=== PATIENT | female | born 1990 | race Asian ===

== ENCOUNTER 2024-11-16 01:04 | Inpatient (IN) ==
[2024-11-16] MEDS ORDERED: LIDOCAINE 1% LOCAL 20 ML VIAL INFIL PRN (02:05)
[2024-11-16] MEDS ORDERED: OXYTOCIN 30 UNITS/NSS 30 UNITS/500 ML BAG IV PRN (02:05)
--- NOTE | 2024-11-16 02:07 | History & Physical Report ---
Date of Service November 16, 2024 Assessment & Plan (1) Gestational diabetes mellitus (GDM) affecting , antepartum: (2) Normal labor: Plan admit. desires epidural. arom when indicated. pit as needed, fetus category one. Anticipate . History of Present Illness Chief Complaint: contractions Primary Care Provider: Yuliya Ruvalcaba Patient is a 34yoaf, with iup at40 4/7 who presents with worsening, painful contractions. no lof/vb. +fm and Delivery Plans Rubella nonimmune GDM w/28wk glucola *Begin monthly Growth US's 36 weeks AC >98%, efw 67% OB Labs: Blood Type B Positive 04/21/24 Antibody Screen NEGATIVE 04/21/24 Hgb 11.0 g/dl (12.0-16.0) L 09/30/24 Hct 33.7 % (37.0-47.0) L 09/30/24 MCV 90.7 fL (80.0-100.0) 04/21/24 Plt Count 256 K/uL (130-400) 04/21/24 Rubella IgG Antibody Non Immune (Immune) L 04/21/24 Treponema pallidum Ab Negative (Negative) 08/20/24 Hep Bs Antigen Negative (Negative) 04/21/24 Hepatitis C Antibody Negative (Negative) 04/21/24 HIV 1&2 Ab/P24 Ag 4thGn Negative (Negative) 04/21/24 Glucose 1 Hr 50 gm 138 mg/dl (70-130) H 06/03/24 Maternal Serum AFP 41.6 ng/mL 06/03/24 OB Optional Labs: Chlamydia trachomatis RNA Not Detected (NotDetected) 04/21/24 Neisseria gonorrhoeae RNA Not Detected (NotDetected) 04/21/24 Alpha Fetoprotein Triple Screen SEE NOTE 06/03/24 Labs Reviewed: neg horizon - sln low risk cfdna - sln gbs neg Allergies Allergy/AdvReac Type Severity Reaction Status Date / Time No Known Allergies Allergy Verified 11/09/24 10:40 Home Medications Medication Instructions Recorded Confirmed Type ascorbic acid (vitamin C) PO 04/06/24 11/09/24 History cholecalciferol (vitamin D3) 50 50 mcg PO DAILY 04/06/24 11/16/24 History mcg (2,000 unit) capsule omega-3 fatty acids [Fish Oil] PO 04/06/24 11/09/24 History Saccharomyces boulardii [Daily PO 04/13/24 11/09/24 History Probiotic (S. boulardii)] levomefolate calcium PO 04/13/24 11/09/24 History [L-Methylfolate] prenat.vits,carolyn,pnp-tlns-ficha tab PO 04/13/24 11/09/24 History acetone (urine) test (Ketone Urine #50 ea 09/02/24 11/09/24 Rx Test strips) blood sugar diagnostic (OneTouch #400 ea 11/02/24 11/09/24 Rx Verio test strips) blood-glucose meter (OneTouch #1 ea 11/02/24 11/09/24 Rx Verio Flex Meter) blood-glucose sensor (FreeStyle #2 ea 11/02/24 11/09/24 Rx Valentino 3 Sensor device) lancets 30 gauge (OneTouch Delica #400 ea 11/02/24 11/09/24 Rx Plus Lancet) Patient History Medical History Anemia Gestational diabetes No pertinent past medical history Surgical History H/O tooth extraction Family History Denies family history of Ovarian cancer Breast cancer Colorectal cancer Social History Smoking Status: Never smoker Second Hand Exposure: No; Do You Dip or Chew Tobacco: No; Hx Alcohol Use: No Hx Substance Use: No Preferred Language: Stateless Communication Ability: Effective Blood Bank Custodian Required: No Beliefs That Will Affect Care: None marital status: marital status details: Melva (40) [phone] Current Living Situation: Spouse Current Living Situation Comment: and her mother current occupational status: student current occupation: [employer] student Other Information That Helps Us Care for You: No Feels Safe at Home: Yes Safety Concerns: Feels Safe At This Time Assistive Devices: None OB History g1--present LABORATORY MONITOR History noncontributory Physical Exam Constitutional: WD/WN, vitals as above Gastrointestinal (Abdomen): soft, gravid, nt cephalic, op by ultrasound Psychiatric: A+Ox3, euthymic affect Genitourinary: cx--4/100/-1 toco--q2-4min efm--140s with mod variability, accels to 160s. no decels. Results & Data Vital Signs (Past 12 Hours) Vital Signs Temp Pulse Resp BP 11/16/24 01:30 93 H 121/80 11/16/24 01:24 37.1 C 20 Coding Level of Care Code None Diagnoses Gestational diabetes mellitus (GDM) affecting , antepartum O24.419 Normal labor O80; Z37.9
[2024-11-16] MEDS: LACTATED RINGER'S 1,000 ML IV PRN (02:20)
[2024-11-16 02:48] LABS: Hematocrit (blood only) 36.2 % (37.0-47.0); Hemoglobin 12.3 g/dl (12.0-16.0); Mean Corpuscular Hemoglobin 31.0 pg (25.0-34.0); Mean Corpuscular Volume 91.2 fL (80.0-100.0); Platelet Count 220 K/uL (130-400); RDW Standard Deviation 41.2 fL (36.4-46.3); Red Blood Count 3.97 M/uL (4.20-5.40); White Blood Count 12.17 K/ul (4.8-10.8)
[2024-11-16] MEDS ORDERED: LIDOCAINE 2% MPF LOCAL 5 ML VIAL EPI PRN (03:18)
[2024-11-16] MEDS ORDERED: SODIUM CHLORIDE 0.9% PF INJ 10 ML VIAL EPI PRN (03:18)
[2024-11-16] MEDS ORDERED: NALOXONE HCL 0.4 MG/1 ML VIAL/CARP IV PRN ×2 (03:18→17:59)
[2024-11-16] MEDS ORDERED: ONDANSETRON INJ 2 MG/ML 2 ML VIAL IV PRN ×3 (03:18→19:12)
[2024-11-16] MEDS ORDERED: BUPIVACAINE 0.25% PF 30 ML VIAL EPI PRN (03:18)
[2024-11-16] MEDS ORDERED: ROPIVACAINE 0.5% PF 5 MG/ML 20 ML VIAL EPI PRN (03:18)
[2024-11-16] MEDS ORDERED: NALOXONE HCL 1 MG in SODIUM CHLORIDE 0.9% 1,000 ML IV PRN ×2 (03:18→17:59)
[2024-11-16] MEDS ORDERED: diphenhydrAMINE 50 MG/ML VIAL IV PRN ×2 (03:18→17:59)
[2024-11-16] MEDS ORDERED: NALBUPHINE HCL INJ 10 MG/ML AMP IV PRN ×2 (03:18→17:59)
--- NOTE | 2024-11-16 03:18 | Anesthesiology Consultation ---
Date of Service November 16, 2024 Assessment & Plan ASA ASA2 Proposed Anesthesia Anesthesia Type: Labor Epidural Risk / Benefits Reviewed With: PT / POA / Parent / Guardian, Accepts Plan and Informed Consent Obtained History Height/Weight Height: 5 ft 4 in Weight: 77.973 kg Allergies Allergy/AdvReac Type Severity Reaction Status Date / Time No Known Allergies Allergy Verified 11/09/24 10:40 Medications Home Medications Medication Instructions Recorded Confirmed Last Taken ascorbic acid (vitamin C) PO 04/06/24 11/09/24 Unknown cholecalciferol (vitamin D3) 50 50 mcg PO DAILY 04/06/24 11/16/24 Unknown mcg (2,000 unit) capsule omega-3 fatty acids [Fish Oil] PO 04/06/24 11/09/24 Unknown Saccharomyces boulardii [Daily PO 04/13/24 11/09/24 Unknown Probiotic (S. boulardii)] levomefolate calcium PO 04/13/24 11/09/24 Unknown [L-Methylfolate] prenat.vits,carolyn,iri-nkjm-nomob tab PO 04/13/24 11/09/24 Unknown acetone (urine) test (Ketone Urine #50 ea 09/02/24 11/09/24 Unknown Test strips) blood sugar diagnostic (OneTouch #400 ea 11/02/24 11/09/24 Unknown Verio test strips) blood-glucose meter (OneTouch #1 ea 11/02/24 11/09/24 Unknown Verio Flex Meter) blood-glucose sensor (FreeStyle #2 ea 11/02/24 11/09/24 Unknown Valentino 3 Sensor device) lancets 30 gauge (OneTouch Delica #400 ea 11/02/24 11/09/24 Unknown Plus Lancet) Active Medications Generic Name Dose Route Start Last Admin Trade Name Freq PRN Reason Stop Dose Admin Fentanyl/Bupivacaine/Sodium Chlor 100 ml 11/16/24 03:18 11/16/24 03:41 Fentanyl 2 Mcg/Ml Bupivacaine 0.125%-Nss 100ml Bag EPI 11/17/24 03:17 100 ml PRN PRN Administration Pain R/T Labor Protocol Lactated Ringer's 1,000 mls @ 125 mls/hr 11/16/24 02:05 11/16/24 03:46 Lr IV 11/18/24 02:04 125 mls/hr .Q8H PRN Administration L&D Protocol Protocol Past Medical History Medical History Anemia Gestational diabetes No pertinent past medical history Exercise / Class Metabolic Activity II 4-5 Yardwork/Stairs/Walk up hill Past Family History Family History Denies family history of Ovarian cancer Breast cancer Colorectal cancer Past Surgical History Surgical History H/O tooth extraction Past Anesthesia History No Hx of Anesthesia Complications and No Family Hx of Anesthesia Complications History of PONV No Hx of PONV and No Hx of Motion Sickness Social History Smoking Status: Never smoker Do You Dip or Chew Tobacco: No Hx Alcohol Use: No Hx Substance Use: No substance use type: does not use Review of Systems denies fever/cough/ colds/ chest pain/ SOB/ BLAKE denies BLAKE Physical Exam Vital Signs Last Vital Signs Temp 37.1 C 11/16/24 01:24 Pulse 94 H 11/16/24 03:44 Resp 20 11/16/24 01:24 BP 115/65 11/16/24 03:44 Pulse Ox 97 11/16/24 03:44 ENMT Mouth: no TMJ abnormality and no dentition abnormality Thyromental Distance: > or= 3.5 Finger Breadths Mallampati Class: II Neck neck extension not limited Respiratory normal respiratory effort; no respiratory distress Auscultation: lungs clear to auscultation bilaterally Cardiovascular Rate/Rhythm: regular rate and regular rhythm Neurologic moves all extremities Psychiatric Orientation: alert and oriented x 3 Testing Laboratory Results 11/16/24 02:24 11/16/24 02:15 POC Glucose 100 H
[2024-11-16] MEDS: LIDOCAINE 2%/EPINEPHRINE 1:200,000 20 ML PF EPI STA (03:40)
[2024-11-16] MEDS: BUPIVACAINE 0.25% PF 30 ML VIAL EPI STA (03:40)
[2024-11-16] MEDS: fentANYL 2 MCG/ML BUPIVacaine 0.125%-NSS 100ML BAG EPI PRN (03:41)
[2024-11-16] MEDS: BUPIVACAINE 0.25% PF 30 ML VIAL ONE (07:05)
[2024-11-16] MEDS: SODIUM CHLORIDE 0.9% PF INJ 10 ML VIAL EPI STA (07:06)
[2024-11-16] MEDS: SODIUM CHLORIDE 0.9% PF INJ 10 ML VIAL ONE (07:06)
[2024-11-16] MEDS: fentANYL 2 MCG/ML BUPIVacaine 0.125%-NSS 100ML BAG ONE (07:06)
[2024-11-16] MEDS: LIDOCAINE 2%/EPINEPHRINE 1:200,000 20 ML PF ONE (07:06)
[2024-11-16] MEDS: ACETAMINOPHEN 650 MG SUPP PR STA (14:03)
[2024-11-16] MEDS: AMPICILLIN/SULBACTAM SOD 3,000 MG/100 ML BAG IV STA (14:03)
[2024-11-16] MEDS ORDERED: MoRPHine SULFATE PF 1 MG/ML 10 ML AMP/VIAL ONE (17:11)
[2024-11-16] MEDS ORDERED: LIDOCAINE 2%/EPINEPHRINE 1:200,000 20 ML PF ONE (17:11)
--- NOTE | 2024-11-16 17:13 | Labor Progress Brief Note ---
Date of Service November 16, 2024 Subjective Patient began pushing earlier today and gave good effort but made minimal progress. An anterior rim of cervix was palpable at that point and patient was rested for a while to labor down. Maternal fever was noted, and resulted in my ordering tylenol + Unasyn for chorioamnionitis. FHT were Cat 2. With resolution of fever, FHT were Cat 1 and pushing resumed. Patient has been pushing for nearly 2hr in this second stage now, and while the head is low, it has not made any further descent beyond +2 which is where it was one full hour ago. Contractions have been spontaneously Q1-2min through her labor process and there has not been a role for adding pitocin, nor would it have been possible given her FHT. heart tones had shown variability and a normal baseline, with variable decels during pushing. I counseled the patient and FOB that after what amounts to 3 total hours of pushing effort, I do not feel she is near delivery, and there has been no further descent for about the last hour. Further, while she is resting supine and not actively pushing, FHT now show an elevated baseline and decreased variability. I advised section. The patient, FOB and property master wished to discuss this and asked that I leave the room for them to consider options. Several minutes later I returned to ask their thoughts. I expressed concern for the FHT again and at that time they agreed to proceed. Consent signed with pt, FOB and property master in the room. Anesthesia notified, second surgeon notified to proceed to hospital for desk assistant role, and we are moving swiftly to delivery. Assessment & Plan Admission and Anticipated Discharge Date Admission Date: November 16, 2024 Results & Data Vital Signs (Past 12 Hours) Vital Signs Temp Pulse Resp BP Pulse Ox 11/16/24 17:05 108 H 100 11/16/24 17:00 108 H 99 11/16/24 16:55 111 H 99 11/16/24 16:53 108 H 121/78 11/16/24 16:50 116 H 99 11/16/24 16:45 115 H 98 11/16/24 16:40 115 H 98 11/16/24 16:38 131 H 105/59 L 11/16/24 16:35 114 H 82 L 11/16/24 16:33 109 H 91 11/16/24 16:30 111 H 84 L 11/16/24 16:25 103 H 82 L 11/16/24 16:24 123 H 112/55 L 11/16/24 16:20 110 H 96 11/16/24 16:19 120 H 93 11/16/24 16:15 111 H 86 L 11/16/24 16:13 113 H 88 L 11/16/24 16:10 115 H 97 11/16/24 16:08 125 H 101/52 L 11/16/24 16:07 104 H 89 L 11/16/24 16:05 109 H 96 11/16/24 16:00 122 H 95 11/16/24 15:54 116 H 95 11/16/24 15:52 116 H 93 11/16/24 15:49 112 H 96 11/16/24 15:46 110 H 91 11/16/24 15:44 102 H 97 11/16/24 15:39 117 H 95 11/16/24 15:38 102 H 117/56 L 11/16/24 15:37 106 H 94 11/16/24 15:34 96 H 96 11/16/24 15:29 99 H 95 11/16/24 15:24 105 H 95 11/16/24 15:23 108 H 115/58 L 11/16/24 15:19 106 H 96 11/16/24 15:14 106 H 98 11/16/24 15:09 96 11/16/24 15:09 105 H 11/16/24 15:09 105 H 128/62 11/16/24 15:04 108 H 96 11/16/24 15:03 22 11/16/24 15:03 99.7 F H 22 11/16/24 15:02 111 H 94 11/16/24 14:59 118 H 95 11/16/24 14:57 102 H 92 11/16/24 14:54 119 H 94 11/16/24 14:51 111 H 89 L 11/16/24 14:49 109 H 96 11/16/24 14:44 113 H 95 11/16/24 14:39 96 11/16/24 14:39 106 H 11/16/24 14:39 102 H 91 11/16/24 14:38 105 H 123/64 11/16/24 14:34 111 H 98 11/16/24 14:32 113 H 91 11/16/24 14:29 112 H 98 11/16/24 14:24 101 H 102/57 L 96 11/16/24 14:19 104 H 97 11/16/24 14:14 100 H 97 11/16/24 14:09 101 H 97 11/16/24 14:07 98 H 112/62 11/16/24 14:04 100 H 98 11/16/24 13:59 109 H 98 11/16/24 13:54 98 H 96 11/16/24 13:53 100 H 104/62 11/16/24 13:49 98 H 97 11/16/24 13:44 98 H 96 11/16/24 13:39 95 H 98 11/16/24 13:38 99 H 106/64 11/16/24 13:34 105 H 99 11/16/24 13:29 100 H 97 11/16/24 13:24 101 H 98 11/16/24 13:23 100 H 117/62 11/16/24 13:19 95 H 98 11/16/24 13:14 104 H 99 11/16/24 13:09 97 H 98 11/16/24 13:08 100 H 116/66 11/16/24 13:04 100.9 F H 108 H 19 98 11/16/24 12:59 96 H 98 11/16/24 12:54 95 H 99 11/16/24 12:53 90 132/75 11/16/24 12:49 95 H 98 11/16/24 12:44 103 H 98 11/16/24 12:39 107 H 98 11/16/24 12:38 115 H 128/79 11/16/24 12:34 95 H 100 11/16/24 12:29 91 H 97 11/16/24 12:24 96 H 97 11/16/24 12:22 86 141/79 H 11/16/24 12:19 91 H 98 11/16/24 12:14 109 H 99 11/16/24 12:09 101 H 98 11/16/24 12:07 107 H 130/63 11/16/24 12:05 112 H 89 L 11/16/24 12:04 112 H 97 11/16/24 11:59 82 L 11/16/24 11:59 111 H 11/16/24 11:59 108 H 88 L 11/16/24 11:54 101 H 97 11/16/24 11:53 111 H 141/62 H 11/16/24 11:49 107 H 98 11/16/24 11:44 110 H 97 11/16/24 11:39 107 H 97 11/16/24 11:34 114 H 97 11/16/24 11:29 128 H 97 11/16/24 11:24 111 H 99 11/16/24 11:19 116 H 99 11/16/24 11:14 106 H 99 11/16/24 11:10 97.7 F 11/16/24 11:09 101 H 99 11/16/24 11:07 97 H 111/67 11/16/24 11:04 92 H 99 11/16/24 10:59 94 H 99 11/16/24 10:54 98 H 99 11/16/24 10:53 88 109/66 11/16/24 10:49 96 H 98 11/16/24 10:44 83 98 11/16/24 10:39 97 H 99 11/16/24 10:37 88 116/66 11/16/24 10:34 89 97 11/16/24 10:29 87 98 11/16/24 10:24 92 H 98 11/16/24 10:23 95 H 107/62 11/16/24 10:19 80 99 11/16/24 10:14 86 98 11/16/24 10:09 81 97 11/16/24 10:08 91 H 115/80 11/16/24 10:04 80 97 11/16/24 09:59 75 98 11/16/24 09:54 78 98 11/16/24 09:53 82 121/76 11/16/24 09:49 84 97 11/16/24 09:44 89 97 11/16/24 09:39 102 H 98 11/16/24 09:38 96 H 109/62 11/16/24 09:34 97 H 98 11/16/24 09:29 104 H 98 11/16/24 09:24 110 H 98 11/16/24 09:22 100 H 117/69 11/16/24 09:19 100 H 98 11/16/24 09:14 102 H 98 11/16/24 09:09 105 H 98 11/16/24 09:08 103 H 121/72 11/16/24 09:04 114 H 99 11/16/24 08:59 107 H 98 11/16/24 08:54 108 H 99 11/16/24 08:53 113 H 108/59 L 11/16/24 08:49 110 H 99 11/16/24 08:44 95 H 99 11/16/24 08:39 80 96 11/16/24 08:37 77 110/63 11/16/24 08:34 87 96 11/16/24 08:29 77 96 11/16/24 08:24 86 95 11/16/24 08:23 81 112/63 11/16/24 08:19 82 96 11/16/24 08:14 80 97 11/16/24 08:09 81 96 11/16/24 08:08 82 109/71 11/16/24 08:04 84 95 11/16/24 07:59 80 95 11/16/24 07:56 85 94 11/16/24 07:54 84 95 11/16/24 07:53 81 114/66 11/16/24 07:49 81 96 11/16/24 07:44 87 97 11/16/24 07:39 91 H 97 11/16/24 07:37 103 H 110/73 11/16/24 07:34 103 H 98 11/16/24 07:29 97 H 98 11/16/24 07:25 16 11/16/24 07:25 99.1 F 16 11/16/24 07:24 100 H 99 11/16/24 07:22 91 H 107/68 11/16/24 07:19 94 H 97 11/16/24 07:14 100 H 97 11/16/24 07:09 101 H 97 11/16/24 07:08 102 H 117/74 11/16/24 07:04 101 H 97 11/16/24 06:59 101 H 95 11/16/24 06:54 91 H 96 11/16/24 06:53 89 115/74 11/16/24 06:49 104 H 97 11/16/24 06:44 103 H 98 11/16/24 06:39 104 H 98 11/16/24 06:38 104 H 130/81 11/16/24 06:34 104 H 97 11/16/24 06:29 105 H 98 11/16/24 06:24 98 H 97 11/16/24 06:23 96 H 105/61 11/16/24 06:19 91 H 95 11/16/24 06:14 92 H 96 11/16/24 06:09 97 H 97 11/16/24 06:08 87 106/65 11/16/24 06:04 95 H 97 11/16/24 05:59 94 H 97 11/16/24 05:54 91 H 97 11/16/24 05:52 90 100/64 11/16/24 05:49 92 H 97 11/16/24 05:45 98.2 F 11/16/24 05:44 100 H 98 11/16/24 05:39 84 97 11/16/24 05:38 101 H 111/74 11/16/24 05:35 84 94 11/16/24 05:34 82 94 11/16/24 05:29 84 96 11/16/24 05:28 86 94 11/16/24 05:24 81 96 11/16/24 05:23 82 117/68 11/16/24 05:21 82 94 11/16/24 05:19 80 95 11/16/24 05:14 83 95 11/16/24 05:09 91 H 98 Coding Level of Care Code None
[2024-11-16] MEDS: CITRIC ACID/SODIUM CITRATE 15 ML UDC PO SCH (17:21)
[2024-11-16] MEDS: AZITHROMYCIN 500 MG/255 ML BAG IV SCH (17:25)
[2024-11-16] MEDS ORDERED: SODIUM BICARB 8.4% INJ 50 MEQ/50 ML SYR IV ONE (17:43)
[2024-11-16] MEDS ORDERED: OXYTOCIN 10 UNITS/ML VIAL ONE (17:43)
[2024-11-16 17:44] LABS: Hematocrit (blood only) 36.7 % (37.0-47.0); Hemoglobin 13.1 g/dl (12.0-16.0); Mean Corpuscular Hemoglobin 32.2 pg (25.0-34.0); Mean Corpuscular Volume 90.2 fL (80.0-100.0); Platelet Count 218 K/uL (130-400); RDW Standard Deviation 41.4 fL (36.4-46.3); Red Blood Count 4.07 M/uL (4.20-5.40); White Blood Count 18.47 K/ul (4.8-10.8)
[2024-11-16] MEDS ORDERED: DEXAMETHASONE SOD INJ 4 MG/ML VIAL ONE (17:48)
[2024-11-16] MEDS ORDERED: PROMETHAZINE 6.25 MG/50.25 ML BAG IV PRN (17:59)
[2024-11-16] MEDS ORDERED: LACTATED RINGER'S 500 ML IV PRN (17:59)
[2024-11-16] MEDS ORDERED: HYDROmorphone INJ 0.5 MG/0.5 ML SYR IV PRN (17:59)
[2024-11-16] MEDS ORDERED: NALOXONE HCL 0.08 MG in SYRINGE 1.8 ML IV PRN (17:59)
[2024-11-16] MEDS ORDERED: MoRPHine SULFATE PF 1 MG/ML 10 ML AMP/VIAL EPI ONE (17:59)
[2024-11-16] MEDS ORDERED: SODIUM CHLORIDE 0.9% 1,000 ML IV SCH (18:00)
[2024-11-16] MEDS ORDERED: NO NARCOTICS OR SEDATIVES SCH (18:00)
--- NOTE | 2024-11-16 18:13 | Operative Report ---
PG Post Operative Report Pre & Post Diagnosis Operation Date: 11/16/24 17:15 Pre-Op Diagnosis: SROM / Labor Failure to Decend Gestational Diabetes Post-Op Diagnosis: Same as above I identified the patient and participated in the time-out.: Yes Procedure Operation Date: 11/16/24 17:15 1' Low Transverse section Surgeon Jaki Mckeon MD Linux Programmer Rekha Estimated Blood Loss 591 Findings Consistent with Post-Op Diagnosis Specimens Placenta, Cord blood, Cord gases Anesthesia Type L&D Only Epidural Exists Complications none Disposition Accompanied Patient To Recovery: Yes Disposition: L&D Description of Procedure The patient was placed operating table in the supine position with a leftward tilt. She was prepped and draped in standard sterile fashion. The anesthetic was tested and found to be adequate. A time-out was held, identifying correct patient, procedure, positioning and preoperative antibiotics. There were no concerns. A Pfannenstiel skin incision was made with a knife and taken down to the underlying layer of fascia. The fascia was incised in the midline with the knife and taken out laterally with scissors. The superior edge of the fascial incision was grasped, elevated and dissected off the underlying rectus both superiorly and inferiorly. The muscles were bluntly in the midline. The peritoneum was entered bluntly. The incision was then stretched. The bladde r retractor was placed. The vesicouterine peritoneum was identified, entered with scissors and taken out laterally with scissors. The bladder flap was created digitally. A hysterotomy incision was created transversely in the lower uterine segment, final entry being accomplished in a blunt manner with the charging crane operator's fingers. Clear amniotic fluid was encountered. The charging crane operator's hand was used to elevate the head to the hysterotomy. The head was delivered using mild fundal pressure, and the shoulders and body followed without difficulty. The cord was clamped and cut and the was then handed off to the awaiting diamond polisher. Cord blood was obtained. A segment of cord was isolated and cut free for cord blood gas collection. The placenta was Manually extracted. The uterus was exteriorized and cleared of all clot and debris with moistened laparotomy sponges. The hysterotomy incision was repaired in two layers, the first in a running locked layer, the second in an imbricating layer. The ovaries and tubes were seen to be normal bilaterally. The uterus was gently replaced in the abdomen, and the gutters were cleared of clot and debris. A final inspection of the hysterotomy revealed good hemostasis. The rectus muscles were allowed to reapproximate naturally. The fascia was then reapproximated with 1 Vicryl in a running nonlocked manner. The fascia was examined and found to be free of defect following closure. The subcutaneous tissue was copiously irrigated and reapproximated with 0-chromic, then the skin edges were closed with 4-0 monocryl in a subcuticular fashion. A dermabond dressing was applied. The flores was found to be draining clear yellow urine at completion of the procedure. I attest to the content of the Intraoperative Record and any orders documented therein. Any exceptions are noted below. I attest to the content of the Intraoperative Record and any orders documented therein. Any exceptions are noted below. OB Procedure Charges 22475
[2024-11-16] MEDS ORDERED: LACTATED RINGER'S 1,000 ML IV SCH ×2 (18:15→19:12)
[2024-11-16] MEDS ORDERED: CALCIUM CARBONATE 500 MG CHEWABLE TAB PO PRN (19:12)
[2024-11-16] MEDS ORDERED: SENNA 8.6 MG TAB PO PRN (19:12)
[2024-11-16] MEDS ORDERED: BENZOCAINE 20% SPRY 85 APPLN/85 GM CAN EXT PRN (19:12)
[2024-11-16] MEDS ORDERED: HYDROCORTISONE ACETATE 25 MG SUPP PR PRN (19:12)
[2024-11-16] MEDS ORDERED: MAGNESIUM HYDROXIDE SUSP 30 ML UDC PO PRN (19:12)
[2024-11-16] MEDS ORDERED: DIPHTHER/TETAN/PERTUS Vaccine (Tdap, Adol/Adult) 0.5mL IM ONE (19:12)
--- NOTE | 2024-11-16 19:21 | Anesthesiology Progress Note ---
Date of Service November 16, 2024 Anesthesia Post Procedure Vital Signs Vital Signs: Temp Pulse Resp BP Pulse Ox 11/16/24 19:19 92 H 112/62 96 11/16/24 19:16 89 94 11/16/24 19:13 89 98 11/16/24 19:09 97 H 103/58 L 11/16/24 19:08 97 H 98 11/16/24 19:03 101 H 97 11/16/24 18:59 102 H 111/60 95 11/16/24 18:53 105 H 98 11/16/24 18:49 107 H 109/65 97 11/16/24 18:44 105 H 98 11/16/24 18:39 107 H 101/58 L 11/16/24 18:38 105 H 98 11/16/24 18:34 95 H 94/55 L 99 11/16/24 18:28 98 H 98 11/16/24 18:22 95 H 97 11/16/24 18:17 100 H 98 11/16/24 18:12 101 H 99 11/16/24 17:15 115 H 98 11/16/24 17:10 109 H 99 11/16/24 17:09 108 H 135/84 11/16/24 17:05 108 H 100 11/16/24 17:00 108 H 99 11/16/24 16:55 111 H 99 11/16/24 16:53 108 H 121/78 11/16/24 16:50 116 H 99 11/16/24 16:45 115 H 98 11/16/24 16:40 115 H 98 11/16/24 16:38 131 H 105/59 L 11/16/24 16:35 114 H 82 L 11/16/24 16:33 109 H 91 11/16/24 16:30 111 H 84 L 11/16/24 16:25 103 H 82 L 11/16/24 16:24 123 H 112/55 L 11/16/24 16:20 110 H 96 11/16/24 16:19 120 H 93 11/16/24 16:15 111 H 86 L 11/16/24 16:13 113 H 88 L 11/16/24 16:10 115 H 97 11/16/24 16:08 125 H 101/52 L 11/16/24 16:07 104 H 89 L 11/16/24 16:05 109 H 96 11/16/24 16:00 122 H 95 11/16/24 15:54 116 H 95 11/16/24 15:52 116 H 93 11/16/24 15:49 112 H 96 11/16/24 15:46 110 H 91 11/16/24 15:44 102 H 97 11/16/24 15:39 117 H 95 11/16/24 15:38 102 H 117/56 L 11/16/24 15:37 106 H 94 11/16/24 15:34 96 H 96 11/16/24 15:29 99 H 95 11/16/24 15:24 105 H 95 11/16/24 15:23 108 H 115/58 L 11/16/24 15:19 106 H 96 11/16/24 15:14 106 H 98 11/16/24 15:09 96 11/16/24 15:09 105 H 11/16/24 15:09 105 H 128/62 11/16/24 15:04 108 H 96 11/16/24 15:03 22 11/16/24 15:03 37.6 C H 22 11/16/24 15:02 111 H 94 11/16/24 14:59 118 H 95 11/16/24 14:57 102 H 92 11/16/24 14:54 119 H 94 11/16/24 14:51 111 H 89 L 11/16/24 14:49 109 H 96 11/16/24 14:44 113 H 95 11/16/24 14:39 96 11/16/24 14:39 106 H 11/16/24 14:39 102 H 91 11/16/24 14:38 105 H 123/64 11/16/24 14:34 111 H 98 11/16/24 14:32 113 H 91 11/16/24 14:29 112 H 98 11/16/24 14:24 101 H 102/57 L 96 11/16/24 14:19 104 H 97 11/16/24 14:14 100 H 97 11/16/24 14:09 101 H 97 11/16/24 14:07 98 H 112/62 11/16/24 14:04 100 H 98 11/16/24 13:59 109 H 98 11/16/24 13:54 98 H 96 11/16/24 13:53 100 H 104/62 07/01/25 13:49 98 H 97 11/16/24 13:44 98 H 96 11/16/24 13:39 95 H 98 11/16/24 13:38 99 H 106/64 11/16/24 13:34 105 H 99 11/16/24 13:29 100 H 97 11/16/24 13:24 101 H 98 11/16/24 13:23 100 H 117/62 11/16/24 13:19 95 H 98 11/16/24 13:14 104 H 99 11/16/24 13:09 97 H 98 11/16/24 13:08 100 H 116/66 11/16/24 13:04 38.3 C H 108 H 19 98 11/16/24 12:59 96 H 98 11/16/24 12:54 95 H 99 11/16/24 12:53 90 132/75 11/16/24 12:49 95 H 98 11/16/24 12:44 103 H 98 11/16/24 12:39 107 H 98 11/16/24 12:38 115 H 128/79 11/16/24 12:34 95 H 100 11/16/24 12:29 91 H 97 11/16/24 12:24 96 H 97 11/16/24 12:22 86 141/79 H 11/16/24 12:19 91 H 98 11/16/24 12:14 109 H 99 11/16/24 12:09 101 H 98 11/16/24 12:07 107 H 130/63 11/16/24 12:05 112 H 89 L 11/16/24 12:04 112 H 97 11/16/24 11:59 82 L 11/16/24 11:59 111 H 11/16/24 11:59 108 H 88 L 11/16/24 11:54 101 H 97 11/16/24 11:53 111 H 141/62 H 11/16/24 11:49 107 H 98 11/16/24 11:44 110 H 97 11/16/24 11:39 107 H 97 11/16/24 11:34 114 H 97 11/16/24 11:29 128 H 97 11/16/24 11:24 111 H 99 11/16/24 11:19 116 H 99 11/16/24 11:14 106 H 99 11/16/24 11:10 36.5 C 11/16/24 11:09 101 H 99 11/16/24 11:07 97 H 111/67 11/16/24 11:04 92 H 99 11/16/24 10:59 94 H 99 11/16/24 10:54 98 H 99 11/16/24 10:53 88 109/66 11/16/24 10:49 96 H 98 11/16/24 10:44 83 98 11/16/24 10:39 97 H 99 11/16/24 10:37 88 116/66 11/16/24 10:34 89 97 11/16/24 10:29 87 98 11/16/24 10:24 92 H 98 11/16/24 10:23 95 H 107/62 11/16/24 10:19 80 99 11/16/24 10:14 86 98 11/16/24 10:09 81 97 11/16/24 10:08 91 H 115/80 11/16/24 10:04 80 97 11/16/24 09:59 75 98 11/16/24 09:54 78 98 11/16/24 09:53 82 121/76 11/16/24 09:49 84 97 11/16/24 09:44 89 97 11/16/24 09:39 102 H 98 11/16/24 09:38 96 H 109/62 11/16/24 09:34 97 H 98 11/16/24 09:29 104 H 98 11/16/24 09:24 110 H 98 11/16/24 09:22 100 H 117/69 11/16/24 09:19 100 H 98 11/16/24 09:14 102 H 98 11/16/24 09:09 105 H 98 11/16/24 09:08 103 H 121/72 11/16/24 09:04 114 H 99 11/16/24 08:59 107 H 98 11/16/24 08:54 108 H 99 11/16/24 08:53 113 H 108/59 L 11/16/24 08:49 110 H 99 11/16/24 08:44 95 H 99 11/16/24 08:39 80 96 11/16/24 08:37 77 110/63 11/16/24 08:34 87 96 11/16/24 08:29 77 96 11/16/24 08:24 86 95 11/16/24 08:23 81 112/63 11/16/24 08:19 82 96 11/16/24 08:14 80 97 11/16/24 08:09 81 96 11/16/24 08:08 82 109/71 11/16/24 08:04 84 95 11/16/24 07:59 80 95 11/16/24 07:56 85 94 11/16/24 07:54 84 95 11/16/24 07:53 81 114/66 11/16/24 07:49 81 96 11/16/24 07:44 87 97 11/16/24 07:39 91 H 97 11/16/24 07:37 103 H 110/73 11/16/24 07:34 103 H 98 11/16/24 07:29 97 H 98 11/16/24 07:25 16 11/16/24 07:25 37.3 C 16 11/16/24 07:24 100 H 99 11/16/24 07:22 91 H 107/68 11/16/24 07:19 94 H 97 11/16/24 07:14 100 H 97 11/16/24 07:09 101 H 97 11/16/24 07:08 102 H 117/74 11/16/24 07:04 101 H 97 11/16/24 06:59 101 H 95 11/16/24 06:54 91 H 96 11/16/24 06:53 89 115/74 11/16/24 06:49 104 H 97 11/16/24 06:44 103 H 98 11/16/24 06:39 104 H 98 11/16/24 06:38 104 H 130/81 11/16/24 06:34 104 H 97 11/16/24 06:29 105 H 98 11/16/24 06:24 98 H 97 11/16/24 06:23 96 H 105/61 11/16/24 06:19 91 H 95 11/16/24 06:14 92 H 96 11/16/24 06:09 97 H 97 11/16/24 06:08 87 106/65 11/16/24 06:04 95 H 97 11/16/24 05:59 94 H 97 11/16/24 05:54 91 H 97 11/16/24 05:52 90 100/64 11/16/24 05:49 92 H 97 11/16/24 05:45 36.8 C 11/16/24 05:44 100 H 98 11/16/24 05:39 84 97 11/16/24 05:38 101 H 111/74 11/16/24 05:35 84 94 11/16/24 05:34 82 94 11/16/24 05:29 84 96 11/16/24 05:28 86 94 11/16/24 05:24 81 96 11/16/24 05:23 82 117/68 11/16/24 05:21 82 94 11/16/24 05:19 80 95 11/16/24 05:14 83 95 11/16/24 05:09 91 H 98 11/16/24 05:07 88 118/73 11/16/24 05:04 83 97 11/16/24 04:59 104 H 96 11/16/24 04:56 82 94 11/16/24 04:54 94 H 96 11/16/24 04:52 82 123/72 11/16/24 04:49 97 H 97 11/16/24 04:44 84 96 11/16/24 04:39 92 H 97 11/16/24 04:38 82 123/72 11/16/24 04:34 83 96 11/16/24 04:29 83 97 11/16/24 04:24 98 11/16/24 04:24 90 11/16/24 04:24 88 120/75 11/16/24 04:19 84 98 11/16/24 04:14 97 H 98 11/16/24 04:09 101 H 97 11/16/24 04:06 97 H 118/79 11/16/24 04:04 97 H 97 11/16/24 04:02 95 H 122/72 11/16/24 03:59 91 H 98 11/16/24 03:56 92 H 122/74 11/16/24 03:54 95 H 97 11/16/24 03:51 91 H 119/73 11/16/24 03:49 99 H 97 11/16/24 03:44 94 H 115/65 97 11/16/24 03:43 105 H 114/62 11/16/24 03:41 99 H 127/63 11/16/24 03:39 107 H 98 11/16/24 03:38 108 H 152/95 H 11/16/24 03:34 109 H 98 11/16/24 03:29 121 H 98 11/16/24 03:24 113 H 98 11/16/24 03:19 88 97 11/16/24 03:14 88 98 11/16/24 03:09 88 99 11/16/24 03:04 97 H 99 11/16/24 01:30 93 H 121/80 11/16/24 01:24 37.1 C 20 Transfer of Care Handoff Completed per policy Notes Mental Status: alert / awake / arousable Patient Amnestic to Procedure: Yes Nausea / Vomiting: adequately controlled Pain: adequately controlled Airway Patency, RR, SpO2: stable & adequate BP & HR: stable & adequate Hydration State: stable & adequate Neuraxial Anesthesia: was administered and sensory block is resolving Anesthetic Complications: no major complications apparent
[2024-11-16] MEDS: ACETAMINOPHEN 325 MG TAB PO SCH (19:31)
[2024-11-16] MEDS: KETOROLAC 30 MG/ML VIAL IV SCH (19:31)
[2024-11-16] MEDS: OXYTOCIN 20 UNITS/LR 1,002 ML IV SCH (19:31)
[2024-11-16 19:40] LABS: Base Excess Cord Venous Blood -4.2 mEq/L (-7.7-1.9); Cord Venous Blood PO2 20 mmHg (14.1-43.3); O2 Saturation Cord Venous Bld < 60.0 % (<68)
[2024-11-16 19:41] LABS: Base Excess Cord Arterial Bld -5.4 mEq/L (-9-1.8); CO2 Cord Arterial Blood 46 mmHg (39.1-73.5); HCO3 Cord Arterial Blood 22 mmol/L (19.7-28.5); Oxygen Sat Cord Arterial Blood < 60.0 % (<60); PO2 Cord Arterial Blood 20 mmHg (4.1-31.7); pH Cord Arterial Blood 7.28 (7.1-7.38)
[2024-11-16] MEDS: ACETAMINOPHEN 500 MG TAB PO SCH (21:04)
[2024-11-16] MEDS: SIMETHICONE 80 MG CHEW PO SCH (22:10)
[2024-11-16] MEDS: DOCUSATE SODIUM 100 MG CAP PO SCH (22:10)
[2024-11-17 06:35] LABS: Hematocrit (blood only) 29.2 % (37.0-47.0); Hemoglobin 10.2 g/dl (12.0-16.0); Immature Granulocytes # (auto) 0.13 K/uL (0.01-0.20); Immature Granulocytes % (auto) 0.6 %; Mean Corpuscular Hemoglobin 31.8 pg (25.0-34.0); Mean Corpuscular Volume 91.0 fL (80.0-100.0); Platelet Count 186 K/uL (130-400); RDW Standard Deviation 41.4 fL (36.4-46.3); Red Blood Count 3.21 M/uL (4.20-5.40); White Blood Count 22.72 K/ul (4.8-10.8)
--- NOTE | 2024-11-17 07:40 | Obstetrical Progress Note ---
Date of Service November 17, 2024 Assessment & Plan (1) delivery delivered: Normal POD1 recovery, continue routine care. Poss D/C tomorrow or next day. Subjective Ambulation: ambulating normally Voiding: no voiding problems Passing Gas:: Yes Diet Tolerance:: regular diet Lochia:: Small Feeding Type:: breast feeding Physical Exam Constitutional WD/WN, vitals as above Eyes PERRL, conjunctivae normal, anicteric sclerae Neck normal visual inspection Respiratory normal respiratory effort and able to speak in complete sentences; no respiratory distress and no labored breathing Cardiovascular Rate/Rhythm: regular rate and regular rhythm Extremities: no edema Chest (Breasts) Chest: normal inspection of chest Gastrointestinal (Abdomen) Inspection/Auscultation: abdomen normal to inspection Soft, postgravid Psychiatric A+Ox3, euthymic affect Genitourinary OB Exam Abdomen: + fundal height Fundus: + firm and + relation to umbilicus (fundus just below umbilicus); not tender Results & Data Vital Signs (Past 12 Hours) Vital Signs Temp Pulse Pulse Resp BP BP Pulse Ox 11/17/24 07:15 18 96 11/17/24 06:10 16 97 11/17/24 05:20 16 94 11/17/24 04:45 97.7 F 87 16 102/62 96 11/17/24 04:00 14 94 11/17/24 03:05 16 96 11/17/24 02:30 18 96 11/17/24 01:30 98.2 F 88 16 105/60 96 11/17/24 01:30 16 96 11/17/24 00:00 16 97 11/16/24 23:00 16 96 11/16/24 22:00 16 96 11/16/24 21:35 11/16/24 21:35 16 95 11/16/24 21:35 98.2 F 90 16 108/64 95 11/16/24 20:38 89 91 11/16/24 20:34 79 97 11/16/24 20:29 90 113/59 L 11/16/24 20:28 90 95 11/16/24 20:23 83 95 11/16/24 20:21 81 94 11/16/24 20:19 85 110/62 11/16/24 20:18 83 96 11/16/24 20:15 98.8 F 22 11/16/24 20:15 80 94 11/16/24 20:13 83 95 11/16/24 20:09 84 110/62 11/16/24 20:08 82 97 11/16/24 20:07 83 94 11/16/24 20:03 86 97 11/16/24 19:59 86 109/61 96 11/16/24 19:54 87 97 11/16/24 19:49 85 107/59 L 11/16/24 19:48 84 97 11/16/24 19:45 18 11/16/24 19:43 88 97 Pulse Ox O2 Del Method O2 Del Method 11/17/24 07:15 11/17/24 06:10 11/17/24 05:20 11/17/24 04:45 Room Air 11/17/24 04:00 11/17/24 03:05 11/17/24 02:30 11/17/24 01:30 Room Air 11/17/24 01:30 11/17/24 00:00 11/16/24 23:00 11/16/24 22:00 11/16/24 21:35 95 Room Air 11/16/24 21:35 11/16/24 21:35 Room Air 11/16/24 20:38 11/16/24 20:34 11/16/24 20:29 11/16/24 20:28 11/16/24 20:23 11/16/24 20:21 11/16/24 20:19 11/16/24 20:18 11/16/24 20:15 11/16/24 20:15 11/16/24 20:13 11/16/24 20:09 11/16/24 20:08 11/16/24 20:07 11/16/24 20:03 11/16/24 19:59 11/16/24 19:54 11/16/24 19:49 11/16/24 19:48 11/16/24 19:45 11/16/24 19:43
[2024-11-17] MEDS: PRENATAL VITAMIN 1 TAB PO SCH (08:09)
[2024-11-17] MEDS: FERROUS SULFATE 325 MG TAB PO SCH (08:09)
[2024-11-17] MEDS: LACTATED RINGER'S 1,000 ML IV SCH (10:02)
[2024-11-17] MEDS ORDERED: DC INTRASPINAL MORPHINE ONE (11:59)
[2024-11-17] MEDS ORDERED: diphenhydrAMINE 50 MG/ML VIAL IV PRN (12:00)
[2024-11-17] MEDS ORDERED: PROMETHAZINE 12.5 MG/50.5 ML BAG IV PRN (12:00)
[2024-11-17] MEDS ORDERED: HYDROmorphone INJ 0.5 MG/0.5 ML SYR IV PRN (12:00)
[2024-11-17] MEDS ORDERED: diphenhydrAMINE Capsule 25 MG CAP PO PRN (12:00)
[2024-11-17] MEDS ORDERED: KETOROLAC 30 MG/ML VIAL IV PRN (19:00)
[2024-11-17] MEDS: IBUPROFEN 600 MG TAB PO SCH (19:53)
[2024-11-18 06:21] LABS: Hematocrit (blood only) 30.3 % (37.0-47.0); Hemoglobin 10.3 g/dl (12.0-16.0)
--- NOTE | 2024-11-18 07:51 | Obstetrical Progress Note ---
Date of Service November 18, 2024 Assessment & Plan (1) delivery delivered: Day 1 status post primary . Mild abdominal distention/bloating noted. Recommend diet and bowel care recommendations. Recommended regular ambulation and good volume fluid intake. (2) Encounter for care and examination after delivery: Subjective Ambulation: ambulating normally Voiding: flores catheter in place and voiding difficulty Passing Gas:: Yes Diet Tolerance:: regular diet Lochia:: Moderate Feeding Type:: breast feeding Physical Exam Constitutional WD/WN, vitals as above Respiratory normal respiratory effort; no respiratory distress and no labored breathing Cardiovascular Extremities: no calf tenderness Gastrointestinal (Abdomen) Inspection/Auscultation: abdomen normal to inspection and + abdomen distended (Mild) Percussion/Palpation: abdomen soft; abdomen nontender, no guarding and abdomen not rigid Incision clean, dry and intact Genitourinary OB Exam Abdomen: + fundal height Fundus: + firm and + relation to umbilicus (Below); not tender or not boggy Results & Data Vital Signs (Past 12 Hours) Vital Signs Temp Pulse Resp BP Pulse Ox O2 Del Method 11/18/24 05:00 36.6 C 87 16 110/70 96 Room Air 11/17/24 23:45 36.7 C 85 18 95/58 L 96 Room Air 11/17/24 20:00 36.5 C 88 18 97/63 L 98 Room Air
[2024-11-18] MEDS: IBUPROFEN 600 MG TAB PO PRN (23:10)
[2024-11-18 23:28] VITALS: TEMP 97.9
--- NOTE | 2024-11-19 07:48 | Obstetrical Progress Note ---
Date of Service November 19, 2024 Assessment & Plan (1) Encounter for care and examination after delivery: POD#3 doing well. Has moved bowels. Not taking oxycodone here, but desires Rx in case it is needed at home in the next few days. Incision CDI. Abdomen soft. Fundus firm. Reviewed postop instructions and DC instructions. Followup 6w in office. Subjective Ambulation: ambulating normally Voiding: no voiding problems Diet Tolerance:: regular diet Lochia:: Moderate Review of Systems All systems reviewed & are unremarkable except as noted in HPI & below Physical Exam Constitutional WD/WN, vitals as above no acute distress Respiratory normal respiratory effort Cardiovascular Rate/Rhythm: regular rate and regular rhythm Gastrointestinal (Abdomen) Inspection/Auscultation: abdomen normal to inspection; abdomen not distended Percussion/Palpation: abdomen soft Genitourinary OB Exam Abdomen: + fundal height Fundus: + firm; not tender Results & Data Vital Signs (Past 12 Hours) Vital Signs Temp Pulse Resp BP Pulse Ox O2 Del Method 11/18/24 23:10 36.6 C 88 18 108/68 96 Room Air
[2024-11-19] MEDS: ACETAMINOPHEN 325 MG TAB PO PRN (09:15)
[2024-11-19 09:49] VITALS: BP 113/67; PULSE 86; RESP 16; O2SAT 98
== END 2024-11-19 14:43 | disposition home or self-care (01) | DRG 786 ==
LOC: OPB 01:04 → 4S1 01:08 → 4E2 21:11
DX: Z3A.40 40 weeks gestation of pregnancy; O42.92 Full-term premature rupture of membranes, unspecified as to length of time between rupture and onset of labor; O62.1 Secondary uterine inertia; O48.0 Post-term pregnancy; O41.1230 Chorioamnionitis, third trimester, not applicable or unspecified; O24.429 Gestational diabetes mellitus in childbirth, unspecified control; Z37.0 Single live birth